=== PATIENT | male | born 1960 | race Caucasian/White ===

== ENCOUNTER 2020-12-18 00:45 | Day surgery (SDC) | payer OTHER, SELFPAY ==
[2020-11-27 13:52] VITALS: BMI 29.2
[2020-12-18 06:55] VITALS: BP 144/72; PULSE 74; RESP 20; TEMP 35.9; O2SAT 99
[2020-12-18] MEDS: LACTATED RINGERS 1,000 ML 150 ML IV CONT (06:59)
--- NOTE | 2020-12-18 07:46 | P.PNAN_ITS ---
Anes - Initial Pre Proc Eval Procedure: Operation Date: 12/18/20 08:00 Proposed Procedures p Screening Colonoscopy - Amor Ramachandran MD Date/Time: 12/18/20 07:46 Surgeon: Amor Ramachandran MD Pre Op Diagnosis: neoplasm screening Patient Data Age: 60 Gender: M Height: 1.83 m Weight: 96 kg Last Vital Signs Temp 96.6 F L 12/18/20 06:55 Pulse 74 12/18/20 06:55 Resp 20 12/18/20 06:55 BP 144/72 H 12/18/20 06:55 Pulse Ox 99 12/18/20 06:55 Allergies Allergy/AdvReac Type Severity Reaction Status Date / Time No Known Allergies Allergy Verified 12/18/20 06:53 Home Medications Medication Instructions Recorded Confirmed Type No Home Medications 11/27/20 11/27/20 History Patient hx anesthesia problems: none Family hx anesthesia problems: none [facility] Past Medical History Medical History (Updated 12/18/20 @ 07:46 by Judah Ng MD) Healthy adult Overweight (BMI 25.0-29.9) Social History Social History Substance use type: does not use Living arrangements: with family Gender identity (if verbalized by the patient): Male Spiritual care concerns: No Anes - Eval Final PreProcedure Day of Procedure 12/18/20 07:46 Patient weight: overweight Heart: regular rate and rhythm Lungs: clear to auscultation Airway: Mallampati scale class II Neurological: alert and oriented Last oral intake: >/= 8 hours ASA classification: II Emergent: no Anesthetic plan: proceed Anesthesia type and monitoring: general GIVS and standard monitoring Informed Consent: The patient's anesthetic plan and its attendant risks and benefits were discussed with the patient/family/POA. Questions were solicited and answers provided to the satisfaction of the patient/family/POA.
--- NOTE | 2020-12-18 07:59 | P.HP_ITS ---
History of Present Illness History of Present Illness Consent: Risks, benefits, and alternatives have been discussed and questions answered. Patient agrees to proceed with procedure. Chief complaint: neoplasm screening Narrative: Matt Penn is a 60 year old male here for first screening colonoscopy Review of Systems Constitutional: Constitutional: Denies headache(s) and Denies weakness Eyes: Eyes: Denies blurry vision ENT: Reports Normal hearing present, Denies headache(s) and Denies neck pain Cardiovascular: Cardiovascular: Denies chest pain and Denies dyspnea Respiratory: Respiratory: Denies dyspnea Gastrointestinal: Gastrointestinal: Reports no additional gastrointestinal complaints Genitourinary: Genitourinary: Denies dysuria Musculoskeletal: Musculoskeletal: Denies neck pain Integumentary/Breasts: Skin/Breast: Denies dry skin Neurologic: Reports Normal hearing present, Denies headache(s) and Denies weakness Psychiatric: Psychiatric: Denies anxiety Endocrine: Endocrine: Denies change in body appearance Hematologic/Lymphatic: Hematologic/Lymphatic: Denies easy bleeding Allergic/Immunologic: Allergic/Immunologic: Denies urticaria COUNT INCLUDES THE [facility] Past Medical History Medical History (Updated 12/18/20 @ 07:59 by Amor Ramachandran MD) Colon cancer screening Healthy adult Overweight (BMI 25.0-29.9) Social History Social History Substance use type: does not use Living arrangements: with family Gender identity (if verbalized by the patient): Male Spiritual care concerns: No Meds Home Medications and Allergies Home Medications Medication Instructions Recorded Confirmed Type No Home Medications 11/27/20 11/27/20 History Allergies Allergy/AdvReac Type Severity Reaction Status Date / Time No Known Allergies Allergy Verified 12/18/20 06:53 Vital Signs Vital Signs - 24 hr 12/18/20 06:55 Temperature 96.6 F L Pulse Rate 74 Respiratory Rate 20 Blood Pressure 144/72 H Pulse Oximetry 99 Exam Const: General: comfortable and no acute distress HENMT: General nose exam: Normal nares present Eyes: General: appearance normal, both eyes and all related structures Neck: Neck: no JVD Resp: Auscultation: clear to auscultation bilaterally Cardio: Rate: regular rate Rhythm: regular rhythm GI: Inspection: non-distended GI Palp: Yes Soft to palpation Skin: General skin exam: normal color Neuro: General: gait normal Speech: normal speech Extrem: General: normal to inspection Psych: Mental Status: mental status grossly normal Assessment and Plan Assessment and plan (1) Colon cancer screening: Code(s): Z12.11 - Encounter for screening for malignant neoplasm of colon Status: Acute Assessment and Plan: colonoscopy
[2020-12-18 08:22] VITALS: BP 115/66; PULSE 62; RESP 27; O2SAT 100
[2020-12-18 08:32] VITALS: BP 131/82; PULSE 63; RESP 19; O2SAT 100
[2020-12-18 08:42] VITALS: BP 139/76; PULSE 57; RESP 18; O2SAT 98
== END 2020-12-18 08:57 | disposition home or self-care (01) ==
PROVIDERS: Visit Provider Internal Medicine Gastroenterology
PROC: 0DJD8ZZ Inspection of Lower Intestinal Tract, Via Natural or Artificial Opening Endoscopic (ICD-10-PCS; CPT 45378; principal; 2020-12-18 08:00)
DX: Z12.11 Encounter for screening for malignant neoplasm of colon (principal); K63.5 Polyp of colon; D12.3 Benign neoplasm of transverse colon; K64.8 Other hemorrhoids
CPT/HCPCS: 45380; 88305; J2704; J7120